=== PATIENT | female | born 1985 | race Caucasian/White ===

== ENCOUNTER 2017-10-10 13:42 | Emergency (ER) | payer MEDICARE, OTHER ==
[2017-10-10 14:21] VITALS: BP 124/71
--- NOTE | 2017-10-10 14:34 | UC ---
Lower Extremity/Ankle HPI - HPI Summary HPI Summary: 31 yo female twisted right ankle about 1 1/2 weeks ago persistent pain able to bear wt with some limitations hurts with prolonged standing - History of Current Complaint Chief Complaint: UCLowerExtremity Stated Complaint: RT ANKLE INJURY Time Seen by Provider: 10/10/17 14:17 Hx Obtained From: Patient Hx Last Menstrual Period: 01/06/15 Onset/Duration: Sudden Onset Severity Initially: Severe Severity Currently: Mild Pain Intensity: 4 Pain Scale Used: 0-10 Numeric Aggravating Factor(s): Standing, Ambulation Alleviating Factor(s): Rest Able to Bear Weight: Yes - Allergies/Home Medications Allergies/Adverse Reactions: Allergies Allergy/AdvReac Type Severity Reaction Status Date / Time fexofenadine Allergy Mild Hives Verified 10/10/17 14:09 latex Allergy Hives Verified 10/10/17 14:09 quetiapine [From Seroquel] Allergy Difficulty Verified 10/10/17 14:09 Breathing ziprasidone [From Geodon] Allergy Difficulty Verified 10/10/17 14:09 Breathing Home Medications: Home Medications Magnesium Oxide [Magnesium] 400 mg PO BEDTIME 10/10/17 [History Confirmed ] Propranolol TAB* [Inderal TAB*] 40 mg PO DAILY 10/10/17 [History Confirmed 10/10] lamoTRIgine TAB(*) [LaMICtal TAB(*)] 100 mg PO BID 10/10/17 [History Confirmed 10/10/17] PMH/Surg Hx/FS Hx/Imm Hx Previously Healthy: Yes - Surgical History Surgical History: Yes Surgery Procedure, Year, and Place: &A 1998 - Social History Alcohol Use: None Substance Use Type: None Smoking Status (MU): Former Smoker Amount Used/How Often: maybe 1 pack per week Length of Time of Smoking/Using Tobacco: on and off since ago 17 but has not smoked in 6 months Review of Systems Constitutional: Negative Skin: Negative Eyes: Negative ENT: Negative Respiratory: Negative Cardiovascular: Negative Gastrointestinal: Negative Genitourinary: Negative Motor: Negative Neurovascular: Negative Musculoskeletal: Arthralgia Neurological: Negative Psychological: Negative Is Patient Immunocompromised?: No All Other Systems Reviewed And Are Negative: Yes Physical Exam Triage Information Reviewed: Yes Appearance: Well-Appearing, No Pain Distress, Well-Nourished Vital Signs: Initial Vital Signs Temp 98.1 F 03/30/18 14:14 Pulse 79 10/10/17 14:14 Resp 16 10/10/17 14:14 BP 124/71 10/10/17 14:14 Pulse Ox 100 10/10/17 14:14 Vital Signs Reviewed: Yes Eyes: Positive: Conjunctiva Clear ENT: Positive: Hearing grossly normal. Negative: Nasal congestion, Nasal drainage Neck: Positive: Supple, Nontender, No Lymphadenopathy Respiratory: Positive: Lungs clear, Normal breath sounds, No respiratory distress, No accessory muscle use Cardiovascular: Positive: RRR, No Murmur Musculoskeletal: Positive: Edema @ - right LM Neurological: Positive: Alert Psychological Exam: Normal Diagnostics - Radiology No standard instances Xray Interpretation: No Acute Changes - STS LAT Radiology Interpretation Completed By: Radiologist Lower Extremity Course/Dx - Differential Dx/Diagnosis Provider Diagnoses: right ankle sprain Discharge - Sign-Out/Discharge Documenting (check all that apply): Discharge, Post-Discharge Follow Up - Discharge Plan Condition: Stable Disposition: HOME Patient Education Materials: Ankle Sprain (ED), R.I.C.E. Treatment (ED) Referrals: Earl Carter MD [Medical Doctor] - As Soon As Possible Additional Instructions: PT consult I suggest you see an orthopedist rest elevate ice - Billing Disposition and Condition Condition: STABLE Disposition: HOME
--- NOTE | 2017-10-10 14:45 | RAD ---
INDICATION: Right ankle pain COMPARISON: None TECHNIQUE: AP, lateral, and oblique views were obtained. FINDINGS: There is no acute fracture or dislocation. There is mild lateral soft tissue swelling. IMPRESSION: MILD LATERAL SOFT TISSUE SWELLING.
== END 2017-10-10 15:30 | disposition home or self-care (01) ==
LOC: UCCORT 13:42
DX: S93.401A Sprain of unspecified ligament of right ankle, initial encounter (principal); X50.1XXA Overexertion from prolonged static or awkward postures, initial encounter; Y92.9 Unspecified place or not applicable; Z87.891 Personal history of nicotine dependence; Z88.8 Allergy status to other drugs, medicaments and biological substances
CPT/HCPCS: 99213; G0463

== ENCOUNTER 2018-10-19 05:38 | Day surgery (SDC) | payer OTHER, MEDICARE ==
[~2018-10-19 05:38] MED LIST: Buffered Lidocaine 1% SYRIN* 1 ML/SYRINGE INTRADERM ONE
[2018-10-19] MEDS ORDERED: Ondansetron ODT TAB* 4 MG ONE (06:00)
[2018-10-19] MEDS ORDERED: Famotidine IV* 10 MG/ML 2 ML (20 mg) IV ONE (06:00)
[2018-10-19] MEDS ORDERED: Dexamethasone TAB* 4 MG ONE (06:00)
[2018-10-19] MEDS ORDERED: Lactated Ringers 1000 ML Bag* 1,000 ML IV SCH (06:00)
[2018-10-19] MEDS ORDERED: Ondansetron INJ* 2 MG/ML VIAL ONE (06:00)
[2018-10-19] MEDS ORDERED: Dexamethasone TAB* 4 MG PO ONE (06:00)
[2018-10-19] MEDS ORDERED: ceFAZolin 2 GM in NS PREMIX(*) 2 GM/100 ML BAG IVPB ONE (06:01)
[2018-10-19] MEDS ORDERED: Famotidine IV* 10 MG/ML 2 ML (20 mg) ONE (06:01)
[2018-10-19] MEDS ORDERED: Scopolamine 1.5 mg* PATCH TRANSDERM PRN (06:12)
[2018-10-19] MEDS ORDERED: oxyCODONE/Acetamin 5/325 MG* TAB PO PRN (06:12)
[2018-10-19] MEDS ORDERED: DiMENhydriNATE IV* 50 MG/ML VIAL IV PUSH PRN (06:12)
[2018-10-19] MEDS ORDERED: Morphine 4 MG/ML VIAL (1 ml) 4 MG/ML VIAL IV PRN (06:12)
[2018-10-19] MEDS ORDERED: fentaNYL* 50 MCG/ML 2 ML VIAL (100 MCG VIAL) IV PRN (06:12)
[2018-10-19] MEDS ORDERED: Naloxone* 0.4 MG/ML 1 ML VIAL IV PRN (06:12)
[2018-10-19] MEDS ORDERED: fentaNYL* 50 MCG/ML 2 ML VIAL (100 MCG VIAL) ONE (06:43)
[2018-10-19] MEDS ORDERED: Midazolam* 1 MG/ML 5 ML VIAL (5 MG) ONE (06:44)
[2018-10-19] MEDS ORDERED: KETAMINE HCL* 50 MG/ML 10 ML VIAL ONE (06:44)
[2018-10-19] MEDS ORDERED: Bupivacaine 0.5%* 50 ML VIAL ONE (06:50)
[2018-10-19] MEDS ORDERED: Propofol* 10 MG/ML 20 ML BTL ONE (07:55)
[2018-10-19] MEDS ORDERED: Ketorolac INJ* 30 MG/ML 1 ML VIAL ONE (07:55)
[2018-10-19] MEDS ORDERED: Lidocaine 2% PF * 5 ML VIAL ONE (07:55)
[2018-10-19] MEDS ORDERED: Morphine 10 MG/ML VIAL (1 ml) ONE (07:55)
[2018-10-19] MEDS ORDERED: oxyCODONE/Acetamin 5/325 MG* TAB ONE (09:04)
[2018-10-19] MEDS ORDERED: Morphine 4 MG/ML VIAL (1 ml) 4 MG/ML VIAL ONE (09:04)
[2018-10-19] MEDS ORDERED: Scopolamine 1.5 mg* PATCH ONE (09:47)
[2018-10-19] MEDS ORDERED: DiMENhydriNATE IV* 50 MG/ML VIAL ONE (09:47)
[2018-10-19 10:39] VITALS: BP 97/62
--- NOTE | 2018-10-19 12:37 | OP ---
DATE OF OPERATION: 10/19/18 - SDS DATE OF : 83 ATTENDING SURGEON: Negro Cardoso MD ASSISTED BY: Doreen Coyne PA-C PRE-OP DIAGNOSIS: Chronic right ankle instability POST-OP DIAGNOSIS: Chronic right ankle instability OPERATIVE PROCEDURE: Right ankle ligament repair, modified anatomic. DESCRIPTION OF PROCEDURE: The patient was taken to the operating room where a lateral longitudinal incision was made over the distal fibula. The patient's capsule was exposed anteriorly, as well as the extensor retinaculum distally. We incised directly through the anterior and distal portion of the fibula to reflect the capsule. We reflected the periosteum posteriorly. The rongeur was used to scarify the anterior and distal border of the fibula. Posterior-to- anterior drill holes were made through the fibula, 2 pairs of these. We used # 1 Vicryl in a Jamal-Moses fashion to bring the capsule tightly up to the anterior and distal border of the fibula. We also mobilized the extensor retinaculum. The band of it was transected dorsally and then swung up on its base at the calcaneus to reach the distal fibula. We sewed it underneath the capsule with also #1 Vicryl suture and then brought the capsule down over the top of the repair with 2-0 Vicryl sutures. A 3-0 Monocryl was used for the subcu and nylon for the skin and a compression dressing plaster splint applied. [id number]/CPS #: [id number] MTDD
[2018-10-22] MEDS ORDERED: Scopolamine PATCH Remove* 1 NOTE MISC PATCH OFF ONE (06:14)
== END 2018-10-19 10:41 | disposition home or self-care (01) ==
LOC: OR 05:38
PROVIDERS: ATTEND Orthopaedic Surgery
DX: M25.371 Other instability, right ankle (principal); F41.8 Other specified anxiety disorders; F43.10 Post-traumatic stress disorder, unspecified; F31.9 Bipolar disorder, unspecified; Z87.891 Personal history of nicotine dependence
CPT/HCPCS: 81025; A9270-GY; C1776; J0690; J1240; J1885; J2250; J2270; J2704; J3010; J8540